=== PATIENT | male | born 1950 | race Asian ===

== ENCOUNTER 2020-11-19 18:08 | Inpatient (IN) | payer OTHER ==
[2020-11-19] MEDS ORDERED: SODIUM CHLORIDE 1,000 ML IV STA (19:30)
[2020-11-19] MEDS ORDERED: SODIUM CHLORIDE 500 ML IV STA (20:02)
[2020-11-19 20:33] LABS: BASO % 0.4 % (0-2.0); EOS % 1.3 % (0-4.5); HEMATOCRIT 47.9 % (35.4-49); HEMOGLOBIN 16.2 GM/dL (11.7-16.9); LYMPH % 9.2 % (8-40); MCH 30.9 pg (25.7-33.7); MCHC 33.9 g/dl (32.0-35.9); MEAN CELL VOLUME 91.1 fl (80-96); MEAN PLT VOLUME 10.7 fl (7.5-11.1); MONO % 7.1 % (3.8-10.2); PLATELET COUNT 163 K/MM3 (134-434); RBC 5.26 M/mm3 (4.00-5.60); RDW 14.4 % (11.9-15.9); WHITE BLOOD COUNT 20.4 K/mm3 (4.0-10.0)
[2020-11-19 20:53] LABS: CALCIUM 9.2 mg/dL (8.5-10.1)
[2020-11-19 20:54] LABS: ALBUMIN 4.1 g/dl (3.4-5.0); BLOOD UREA NITROGEN 50.5 mg/dL (7-18)
[2020-11-19 20:57] LABS: CREATININE 2.4 mg/dL (0.55-1.3); EPI CELLS 35 /uL (0-25.1); HYALINE CASTS 3 /uL (0-3.1); URINE APPEARANCE TURBID; URINE BACTERIA 3406 /uL (0-1359); URINE BILIRUBIN NEGATIVE (NEGATIVE); URINE COLOR YELLOW; URINE GLUCOSE (UA) 1+ (NEGATIVE); URINE KETONE TRACE (NEGATIVE); URINE LEUK ESTERASE 2+ (NEGATIVE); URINE NITRITE NEGATIVE (NEGATIVE); URINE PROTEIN 3+ (NEGATIVE); URINE RBC 4191 /uL (0-23.9); URINE UROBILINOGEN 0.2 mg/dL (0.2-1.0); URINE WBC 3852 /uL (0-25.8)
[2020-11-19 20:58] LABS: BILIRUBIN,TOTAL 1.9 mg/dL (0.2-1)
[2020-11-19 20:59] LABS: TOT PROT 7.8 g/dl (6.4-8.2)
[2020-11-19] MEDS ORDERED: CEFTRIAXONE 1,000 MG in DEXTROSE 5%-WATER - 50 ML IVPB ONE (21:11)
[2020-11-19] MEDS ORDERED: CEFTRIAXONE 1 GM/50 ML BAG ONE (21:57)
[2020-11-19 23:27] LABS: PLATELET ESTIMATE NORMAL
[2020-11-20 00:14] LABS: BASO % 0.2 % (0-2.0); EOS % 0.8 % (0-4.5); HEMATOCRIT 45.8 % (35.4-49); HEMOGLOBIN 15.4 GM/dL (11.7-16.9); LYMPH % 5.1 % (8-40); MCH 30.8 pg (25.7-33.7); MCHC 33.7 g/dl (32.0-35.9); MEAN CELL VOLUME 91.3 fl (80-96); MEAN PLT VOLUME 10.7 fl (7.5-11.1); MONO % 8.8 % (3.8-10.2); NEUT % 85.1 % (42.8-82.8); PLATELET COUNT 159 K/MM3 (134-434); RBC 5.01 M/mm3 (4.00-5.60); RDW 14.5 % (11.9-15.9); WHITE BLOOD COUNT 21.5 K/mm3 (4.0-10.0)
[2020-11-20] MEDS ORDERED: ACETAMINOPHEN 325 MG TABLET (FP) PO PRN (01:07)
[2020-11-20] MEDS: oxyCODONE HCL 5 MG TABLET PO ONE ×2 (01:39→04:29)
[2020-11-20 02:13] LABS: ANISOCYTOSIS 1+; MACROCYTOSIS 1+; PLATELET ESTIMATE DECREASED
[2020-11-20] MEDS: SODIUM CHLORIDE 1,000 ML IV SCH ×2 (04:29→16:23)
[2020-11-20 04:40] VITALS: BMI 29.0
[2020-11-20] MEDS ORDERED: HEPARIN NA (PORCINE) 5,000 UNITS/ML 1ML VIAL SQ SCH (06:00)
[2020-11-20] MEDS: INSULIN SLIDING SCALE (NOVOLOG) 1 VIAL SQ SCH ×4 (06:23→21:49)
[2020-11-20] MEDS: LEVOTHYROXINE NA 150 MCG TABLET PO SCH (06:24)
[2020-11-20] MEDS ORDERED: PT OWN MED DRAWER 7, Y5N ONE ×3 (08:32→11:04)
[2020-11-20] MEDS ORDERED: INSULIN (NOVOLOG) ASPART 100 UNITS/ML 10ML VIAL ONE (08:39)
[2020-11-20] MEDS: TAMSULOSIN HCL 0.4 MG CAP PO SCH (08:41)
[2020-11-20] MEDS: PHENAZOPYRIDINE HCL 100 MG TABLET (FP) PO SCH ×3 (08:41→17:51)
[2020-11-20 08:58] LABS: BASO % 0.3 % (0-2.0); EOS % 0.4 % (0-4.5); HEMATOCRIT 43.3 % (35.4-49); HEMOGLOBIN 14.9 GM/dL (11.7-16.9); LYMPH % 8.7 % (8-40); MCH 30.8 pg (25.7-33.7); MCHC 34.5 g/dl (32.0-35.9); MEAN CELL VOLUME 89.4 fl (80-96); MEAN PLT VOLUME 9.7 fl (7.5-11.1); MONO % 9.7 % (3.8-10.2); NEUT % 80.9 % (42.8-82.8); PLATELET COUNT 128 K/MM3 (134-434); RBC 4.84 M/mm3 (4.00-5.60); RDW 14.2 % (11.9-15.9); WHITE BLOOD COUNT 22.3 K/mm3 (4.0-10.0)
[2020-11-20] MEDS ORDERED: PHENAZOPYRIDINE HCL 100 MG TABLET (FP) PO SCH (09:00)
[2020-11-20] MEDS: CARVEDILOL 25 MG TABLET (FP) PO SCH ×2 (09:23→21:23)
[2020-11-20] MEDS: RIVAROXABAN 20 MG TABLET PO SCH (09:24)
[2020-11-20 09:25] LABS: ALBUMIN 3.6 g/dl (3.4-5.0); BLOOD UREA NITROGEN 44.6 mg/dL (7-18); CALCIUM 8.8 mg/dL (8.5-10.1)
[2020-11-20 09:26] LABS: MAGNESIUM 1.9 mg/dL (1.8-2.4)
[2020-11-20 09:28] LABS: CREATININE 2.2 mg/dL (0.55-1.3); PHOSPHOROUS 3.1 mg/dL (2.5-4.9)
[2020-11-20 09:30] LABS: BILIRUBIN,TOTAL 1.9 mg/dL (0.2-1); TOT PROT 7.3 g/dl (6.4-8.2)
[2020-11-20] MEDS ORDERED: LOSARTAN POTASSIUM 50 MG TABLET PO SCH (10:00)
[2020-11-20 10:46] LABS: PLATELET ESTIMATE DECREASED
[2020-11-20] MEDS: NICOTINE 7 MG/24 HOURS TOPICAL PATCH TD SCH (11:00)
[2020-11-20] MEDS ORDERED: cefTRIAXone SODIUM 1 GM VIAL ONE (20:27)
[2020-11-20] MEDS ORDERED: DEXTROSE 5%-WATER - 50 ML IVPB ONE (20:29)
[2020-11-20] MEDS: ROSUVASTATIN CA 20 MG TABLET (FP) PO SCH (21:23)
[2020-11-20] MEDS: CEFTRIAXONE 1 GM in DEXTROSE 5%-WATER - 50 ML IVPB SCH (21:24)
[2020-11-21] MEDS: SODIUM CHLORIDE 1,000 ML IV SCH (02:15)
[2020-11-21] MEDS: LEVOTHYROXINE NA 150 MCG TABLET PO SCH (06:07)
[2020-11-21] MEDS: INSULIN SLIDING SCALE (NOVOLOG) 1 VIAL SQ SCH ×3 (06:11→16:48)
[2020-11-21] MEDS: INSULIN (LEVEMIR) 100 UNITS/ML UNITS SQ SCH ×2 (06:12→21:14)
[2020-11-21 08:48] LABS: HEMATOCRIT 39.9 % (35.4-49); HEMOGLOBIN 13.8 GM/dL (11.7-16.9); MCH 30.6 pg (25.7-33.7); MCHC 34.5 g/dl (32.0-35.9); MEAN CELL VOLUME 88.8 fl (80-96); MEAN PLT VOLUME 9.7 fl (7.5-11.1); PLATELET COUNT 114 K/MM3 (134-434); RDW 14.5 % (11.9-15.9); WHITE BLOOD COUNT 16.9 K/mm3 (4.0-10.0)
[2020-11-21] MEDS ORDERED: PT OWN MED DRAWER 7, Y5N ONE (09:21)
[2020-11-21] MEDS ORDERED: cefTRIAXone SODIUM 1 GM VIAL ONE (09:21)
[2020-11-21] MEDS ORDERED: DEXTROSE 5%-WATER - 50 ML IVPB ONE (09:21)
[2020-11-21 09:22] LABS: CALCIUM 8.5 mg/dL (8.5-10.1)
[2020-11-21 09:23] LABS: BLOOD UREA NITROGEN 34.8 mg/dL (7-18)
[2020-11-21] MEDS: TAMSULOSIN HCL 0.4 MG CAP PO SCH (09:23)
[2020-11-21] MEDS: PHENAZOPYRIDINE HCL 100 MG TABLET (FP) PO SCH ×3 (09:23→18:06)
[2020-11-21] MEDS: CEFTRIAXONE 1 GM in DEXTROSE 5%-WATER - 50 ML IVPB SCH (09:24)
[2020-11-21] MEDS: CARVEDILOL 25 MG TABLET (FP) PO SCH ×2 (09:24→21:12)
[2020-11-21] MEDS: RIVAROXABAN 20 MG TABLET PO SCH (09:24)
[2020-11-21] MEDS: NICOTINE 7 MG/24 HOURS TOPICAL PATCH TD SCH ×2 (09:25→16:20)
[2020-11-21 09:26] LABS: BILIRUBIN,TOTAL 1.2 mg/dL (0.2-1); CREATININE 1.9 mg/dL (0.55-1.3); PHOSPHOROUS 2.3 mg/dL (2.5-4.9); TOT PROT 6.7 g/dl (6.4-8.2)
[2020-11-21] MEDS: ROSUVASTATIN CA 20 MG TABLET (FP) PO SCH (21:12)
[2020-11-22] MEDS: LEVOTHYROXINE NA 150 MCG TABLET PO SCH (06:00)
[2020-11-22] MEDS: INSULIN SLIDING SCALE (NOVOLOG) 1 VIAL SQ SCH ×3 (06:01→17:09)
[2020-11-22] MEDS: INSULIN (LEVEMIR) 100 UNITS/ML UNITS SQ SCH ×2 (06:01→22:01)
[2020-11-22 07:44] LABS: BASO % 0.5 % (0-2.0); EOS % 4.2 % (0-4.5); HEMATOCRIT 38.5 % (35.4-49); HEMOGLOBIN 13.4 GM/dL (11.7-16.9); LYMPH % 11.3 % (8-40); MCH 31.2 pg (25.7-33.7); MCHC 34.9 g/dl (32.0-35.9); MEAN CELL VOLUME 89.4 fl (80-96); MEAN PLT VOLUME 10.5 fl (7.5-11.1); MONO % 9.4 % (3.8-10.2); NEUT % 74.6 % (42.8-82.8); PLATELET COUNT 116 K/MM3 (134-434); RBC 4.31 M/mm3 (4.00-5.60); RDW 14.2 % (11.9-15.9)
[2020-11-22 08:14] LABS: ALBUMIN 2.8 g/dl (3.4-5.0); MAGNESIUM 1.9 mg/dL (1.8-2.4)
[2020-11-22 08:17] LABS: CALCIUM 8.4 mg/dL (8.5-10.1); CREATININE 1.8 mg/dL (0.55-1.3); PHOSPHOROUS 2.4 mg/dL (2.5-4.9)
[2020-11-22 08:19] LABS: TOT PROT 6.3 g/dl (6.4-8.2)
[2020-11-22] MEDS ORDERED: DEXTROSE 5%-WATER - 50 ML IVPB ONE (10:32)
[2020-11-22] MEDS ORDERED: cefTRIAXone SODIUM 1 GM VIAL ONE (10:32)
[2020-11-22] MEDS: NICOTINE 7 MG/24 HOURS TOPICAL PATCH TD SCH (11:03)
[2020-11-22] MEDS: TAMSULOSIN HCL 0.4 MG CAP PO SCH (11:03)
[2020-11-22] MEDS: PHENAZOPYRIDINE HCL 100 MG TABLET (FP) PO SCH ×3 (11:03→17:46)
[2020-11-22] MEDS: CEFTRIAXONE 1 GM in DEXTROSE 5%-WATER - 50 ML IVPB SCH (11:04)
[2020-11-22] MEDS: CARVEDILOL 25 MG TABLET (FP) PO SCH ×2 (11:04→22:00)
[2020-11-22] MEDS: RIVAROXABAN 20 MG TABLET PO SCH (11:04)
[2020-11-22] MEDS: ERTAPENEM SODIUM 1 GM in SODIUM CHLORIDE 50 ML IVPB SCH (13:09)
[2020-11-22] MEDS: amLODIPine BESYLATE 5 MG TABLET (FP) PO SCH (17:10)
[2020-11-22] MEDS: ROSUVASTATIN CA 20 MG TABLET (FP) PO SCH (22:00)
[2020-11-23] MEDS: LEVOTHYROXINE NA 150 MCG TABLET PO SCH (06:41)
[2020-11-23] MEDS: INSULIN SLIDING SCALE (NOVOLOG) 1 VIAL SQ SCH ×3 (06:41→16:28)
[2020-11-23] MEDS: INSULIN (LEVEMIR) 100 UNITS/ML UNITS SQ SCH (06:43)
[2020-11-23] MEDS ORDERED: INSULIN (NOVOLOG) ASPART 100 UNITS/ML 10ML VIAL ONE ×2 (07:53→18:32)
[2020-11-23 08:08] LABS: BASO % 0.8 % (0-2.0); EOS % 9.3 % (0-4.5); HEMATOCRIT 39.2 % (35.4-49); LYMPH % 19.7 % (8-40); MCH 31.3 pg (25.7-33.7); MCHC 35.6 g/dl (32.0-35.9); MEAN PLT VOLUME 9.6 fl (7.5-11.1); MONO % 16.5 % (3.8-10.2); NEUT % 53.7 % (42.8-82.8); PLATELET COUNT 126 K/MM3 (134-434); RBC 4.46 M/mm3 (4.00-5.60); RDW 13.8 % (11.9-15.9); WHITE BLOOD COUNT 6.6 K/mm3 (4.0-10.0)
[2020-11-23 08:23] LABS: ALBUMIN 2.8 g/dl (3.4-5.0); BLOOD UREA NITROGEN 35.4 mg/dL (7-18); CALCIUM 8.6 mg/dL (8.5-10.1)
[2020-11-23 08:26] LABS: CREATININE 1.8 mg/dL (0.55-1.3)
[2020-11-23 08:28] LABS: BILIRUBIN,TOTAL 0.7 mg/dL (0.2-1); TOT PROT 6.5 g/dl (6.4-8.2)
[2020-11-23] MEDS: PHENAZOPYRIDINE HCL 100 MG TABLET (FP) PO SCH ×2 (08:57→12:35)
[2020-11-23] MEDS: TAMSULOSIN HCL 0.4 MG CAP PO SCH (08:57)
[2020-11-23 10:00] LABS: ANISOCYTOSIS 0; MACROCYTOSIS 0; PLATELET ESTIMATE DECREASED
[2020-11-23] MEDS ORDERED: PT OWN MED DRAWER 7, Y5N ONE ×2 (10:23→12:30)
[2020-11-23] MEDS: CARVEDILOL 25 MG TABLET (FP) PO SCH (12:21)
[2020-11-23] MEDS: amLODIPine BESYLATE 5 MG TABLET (FP) PO SCH (12:22)
[2020-11-23] MEDS: ERTAPENEM SODIUM 1 GM in SODIUM CHLORIDE 50 ML IVPB SCH (12:22)
[2020-11-23] MEDS: RIVAROXABAN 20 MG TABLET PO SCH (12:22)
[2020-11-23] MEDS: NICOTINE 7 MG/24 HOURS TOPICAL PATCH TD SCH (12:24)
[2020-11-23] MEDS ORDERED: INSULIN (LEVEMIR) 100 UNITS/ML UNITS SQ ONE (13:53)
[2020-11-23 14:47] VITALS: BP 157/85; PULSE 73; TEMP 98.6
== END 2020-11-23 17:37 | disposition home health service (06) | DRG 872 ==
LOC: JER 18:08 → JERBED 23:37 → J8W 11-20 04:03
PROVIDERS: ADMIT Hospitalist; ATTEND Internal Medicine
PROC: 02HV33Z Insertion of Infusion Device into Superior Vena Cava, Percutaneous Approach (ICD-10-PCS; principal; 2020-11-23)
PROC: B548ZZA Ultrasonography of Superior Vena Cava, Guidance (ICD-10-PCS; 2020-11-23)
DX: A41.9 Sepsis, unspecified organism (principal); N17.9 Acute kidney failure, unspecified; E87.1 Hypo-osmolality and hyponatremia; N39.0 Urinary tract infection, site not specified; N12 Tubulo-interstitial nephritis, not specified as acute or chronic; E78.5 Hyperlipidemia, unspecified; I48.91 Unspecified atrial fibrillation; Z79.01 Long term (current) use of anticoagulants; E11.22 Type 2 diabetes mellitus with diabetic chronic kidney disease; I12.9 Hypertensive chronic kidney disease with stage 1 through stage 4 chronic kidney disease, or unspecified chronic kidney disease; E86.0 Dehydration; E03.9 Hypothyroidism, unspecified; N18.30 Chronic kidney disease, stage 3 unspecified; I25.10 Atherosclerotic heart disease of native coronary artery without angina pectoris; Z79.4 Long term (current) use of insulin; R94.31 Abnormal electrocardiogram [ECG] [EKG]; E27.9 Disorder of adrenal gland, unspecified
CPT/HCPCS: 36415; 36558; 74176-TC; 80053; 81003; 82570; 82962; 83036; 83735; 84100; 84300; 84436; 84443; 84540; 85025; 85027; 87040; 87086; 87186; 93005; 93010; 99285-25; C9803; U0003; U0005

== ENCOUNTER → 2020-12-11 | Day surgery (SDC) | payer OTHER | END | disposition home or self-care (01) | LOC: JRADIR 11:49 | PROVIDERS: ATTEND Internal Medicine Infectious Disease | PROC: 02PY03Z Removal of Infusion Device from Great Vessel, Open Approach (ICD-10-PCS; principal; 2020-12-11) | DX: Z45.2 Encounter for adjustment and management of vascular access device (principal) | CPT/HCPCS: 36589 ==

== ENCOUNTER 2023-08-21 14:12 | Emergency (ER) | payer OTHER ==
[2023-08-21 14:22] VITALS: BP 152/63; PULSE 72; RESP 18; TEMP 97.7; BMI 28.3
== END 2023-08-21 17:46 | disposition home or self-care (01) ==
LOC: JER 14:12
DX: M79.604 Pain in right leg (principal); M79.605 Pain in left leg; R22.43 Localized swelling, mass and lump, lower limb, bilateral; M54.16 Radiculopathy, lumbar region
CPT/HCPCS: 82962; 93970-TC; 99284-25

== ENCOUNTER 2024-03-04 17:44 | Inpatient (IN) | payer OTHER ==
[2024-03-04] MEDS: SODIUM CHLORIDE 0.9% 500 ML INFUS.BAG IV ONE (18:53)
[2024-03-04 18:56] LABS: BASO % 0.4 % (0-2.0); EOS % 1.7 % (0-4.5); HEMATOCRIT 47.6 % (35.4-49); HEMOGLOBIN 15.7 GM/dL (11.7-16.9); LYMPH % 15.8 % (8-40); MCH 30.1 pg (25.7-33.7); MCHC 32.9 g/dl (32.0-35.9); MEAN CELL VOLUME 91.5 fl (80-96); MEAN PLT VOLUME 8.7 fl (7.5-11.1); MONO % 8.6 % (3.8-10.2); NEUT % 73.5 % (42.8-82.8); PLATELET COUNT 133 10^3/uL (134-434); RBC 5.21 M/mm3 (4.00-5.60); RDW 14.6 % (11.9-15.9); WHITE BLOOD COUNT 11.1 K/mm3 (4.0-10.0)
[2024-03-04 19:36] LABS: POTASSIUM 4.6 mmol/L (3.5-5.1)
[2024-03-04 19:38] LABS: CALCIUM 9.3 mg/dL (8.5-10.1)
[2024-03-04 19:39] LABS: ALBUMIN 4.2 g/dl (3.4-5.0); BLOOD UREA NITROGEN 31.7 mg/dL (7-18)
[2024-03-04 19:42] LABS: CREATININE 2.4 mg/dL (0.55-1.3)
[2024-03-04 19:44] LABS: BILIRUBIN,TOTAL 1.4 mg/dL (0.2-1); TOT PROT 7.8 g/dl (6.4-8.2)
[2024-03-04 20:12] LABS: EPI CELLS 7 /uL (0-25.1); HYALINE CASTS 0 /uL (0-3.1); PH,URINE 5.5 (5.0-8.0); URINE APPEARANCE CLEAR; URINE BACTERIA 9 /uL (0-1359); URINE BILIRUBIN NEGATIVE (NEGATIVE); URINE COLOR YELLOW; URINE GLUCOSE (UA) 3+ (NEGATIVE); URINE KETONE NEGATIVE (NEGATIVE); URINE LEUK ESTERASE NEGATIVE (NEGATIVE); URINE NITRITE NEGATIVE (NEGATIVE); URINE PROTEIN 3+ (NEGATIVE); URINE RBC 28 /uL (0-23.9); URINE UROBILINOGEN 0.2 mg/dL (0.2-1.0); URINE WBC 5 /uL (0-25.8)
[2024-03-04] MEDS ORDERED: ACETAMINOPHEN INJECTION 100 ML IVPB ONE (21:27)
[2024-03-04] MEDS: ACETAMINOPHEN 1000 MG/100 ML BAG IVPB ONE (21:32)
[2024-03-05] MEDS: SODIUM CHLORIDE 1,000 ML IV SCH ×2 (03:02→08:14)
[2024-03-05 03:43] LABS: HEMATOCRIT 45.5 % (35.4-49); HEMOGLOBIN 15.1 GM/dL (11.7-16.9); MCH 30.2 pg (25.7-33.7); MCHC 33.3 g/dl (32.0-35.9); MEAN CELL VOLUME 90.8 fl (80-96); MEAN PLT VOLUME 9.4 fl (7.5-11.1); PLATELET COUNT 122 10^3/uL (134-434); RBC 5.01 M/mm3 (4.00-5.60); RDW 14.6 % (11.9-15.9); WHITE BLOOD COUNT 12.9 K/mm3 (4.0-10.0)
[2024-03-05] MEDS ORDERED: ACETAMINOPHEN INJECTION 100 ML IVPB ONE ×2 (04:47→19:56)
[2024-03-05] MEDS: ACETAMINOPHEN 1000 MG/100 ML BAG IVPB ONE ×2 (04:50→20:16)
[2024-03-05 06:07] LABS: ERYTHROCYTE SEDIMENTATION RATE 10 mm/hr (0-20)
[2024-03-05 06:46] LABS: HEMOGLOBIN 13.8 GM/dL (11.7-16.9); MCH 30.5 pg (25.7-33.7); MCHC 33.7 g/dl (32.0-35.9); MEAN CELL VOLUME 90.5 fl (80-96); MEAN PLT VOLUME 9.2 fl (7.5-11.1); PLATELET COUNT 110 10^3/uL (134-434); RBC 4.53 M/mm3 (4.00-5.60); RDW 14.7 % (11.9-15.9); WHITE BLOOD COUNT 10.9 K/mm3 (4.0-10.0)
[2024-03-05 07:04] LABS: CHLORIDE 107 mmol/L (98-107); POTASSIUM 4.2 mmol/L (3.5-5.1); SODIUM 139 mmol/L (136-145)
[2024-03-05 07:06] LABS: ALBUMIN 3.7 g/dl (3.4-5.0); ANION GAP 9 mmol/L (4-13); CALCIUM 8.1 mg/dL (8.5-10.1); CO2 22 mmol/L (21-32); GLUCOSE,RANDOM 70 mg/dL (74-106); MAGNESIUM 1.6 mg/dL (1.8-2.4)
[2024-03-05 07:08] LABS: BLOOD UREA NITROGEN 32.4 mg/dL (7-18)
[2024-03-05 07:10] LABS: CREATININE 2.2 mg/dL (0.55-1.3); PHOSPHOROUS 3.3 mg/dL (2.5-4.9); SGOT/AST 13 U/L (15-37); SGPT/ALT 26 U/L (13-61)
[2024-03-05 07:12] LABS: BILIRUBIN,TOTAL 1.7 mg/dL (0.2-1); TOT PROT 6.6 g/dl (6.4-8.2)
[2024-03-05 07:13] LABS: ALK PHOS 51 U/L (45-117)
[2024-03-05] MEDS: INSULIN ASPART SLIDING SCALE (NOVOLOG) 1 VIAL SQ SCH (07:28)
[2024-03-05] MEDS: INSULIN (LEVEMIR) 100 UNITS/ML UNITS SQ SCH (07:29)
[2024-03-05] MEDS ORDERED: ACETAMINOPHEN 325 MG TABLET (FP) ONE (10:27)
[2024-03-05] MEDS ORDERED: LOSARTAN POTASSIUM 50 MG TABLET ONE (10:27)
[2024-03-05] MEDS: CHLORTHALIDONE 25 MG TABLET PO SCH (10:30)
[2024-03-05] MEDS: EZETIMIBE 10 MG TABLET (FP) PO SCH (10:30)
[2024-03-05] MEDS: OMEGA-3 ACID ETHYL ESTERS (FATTY-ACIDS) 1 GM CAPSULE (FP) PO SCH (10:30)
[2024-03-05] MEDS: LOSARTAN POTASSIUM 50 MG TABLET PO SCH (10:30)
[2024-03-05] MEDS: FENOFIBRIC ACID 135 MG CAP PO SCH (10:39)
[2024-03-05] MEDS ORDERED: GABAPENTIN 300 MG CAPSULE ONE ×2 (10:45→22:23)
[2024-03-05] MEDS ORDERED: LEVOTHYROXINE NA 50 MCG TABLET (FP) ONE (10:46)
[2024-03-05] MEDS ORDERED: LEVOTHYROXINE NA 100 MCG TABLET (FP) ONE (10:46)
[2024-03-05] MEDS: GABAPENTIN 300 MG CAPSULE PO SCH (10:52)
[2024-03-05] MEDS: LEVOTHYROXINE NA 75 MCG TABLET (FP) PO SCH (10:52)
[2024-03-05] MEDS: ACETAMINOPHEN 500 MG TABLET (FP) PO ONE (10:53)
[2024-03-05] MEDS ORDERED: ACETAMINOPHEN 160 MG/5 ML 473ML BULK BOTTLE ONE (15:22)
[2024-03-05] MEDS: ACETAMINOPHEN 1000 MG/100 ML BAG IVPB SCH (15:29)
[2024-03-05] MEDS: RIVAROXABAN 15 MG TABLET PO SCH (18:32)
[2024-03-05] MEDS ORDERED: ROSUVASTATIN CA 20 MG TABLET PO SCH (22:00)
[2024-03-06] MEDS ORDERED: ACETAMINOPHEN INJECTION 100 ML IVPB ONE ×3 (02:17→18:12)
[2024-03-06] MEDS ORDERED: LIDOCAINE 5% TOPICAL PATCH ONE (08:49)
[2024-03-06] MEDS ORDERED: HEPARIN NA (PORCINE) 5,000 UNITS/ML 1ML VIAL ONE (08:49)
[2024-03-06] MEDS ORDERED: INSULIN (LEVEMIR) 100 UNITS/ML UNITS SQ SCH (10:00)
[2024-03-06 10:49] LABS: BASO % 0.3 % (0-2.0); EOS % 0.6 % (0-4.5); HEMOGLOBIN 14.6 GM/dL (11.7-16.9); LYMPH % 15.5 % (8-40); MCHC 34.8 g/dl (32.0-35.9); MEAN PLT VOLUME 8.7 fl (7.5-11.1); MONO % 9.4 % (3.8-10.2); NEUT % 74.2 % (42.8-82.8); PLATELET COUNT 116 10^3/uL (134-434); RBC 4.72 M/mm3 (4.00-5.60); RDW 14.3 % (11.9-15.9); WHITE BLOOD COUNT 12.1 K/mm3 (4.0-10.0)
[2024-03-06 11:07] LABS: POTASSIUM 4.3 mmol/L (3.5-5.1)
[2024-03-06 11:11] LABS: ALBUMIN 3.8 g/dl (3.4-5.0); BLOOD UREA NITROGEN 38.2 mg/dL (7-18); CALCIUM 8.9 mg/dL (8.5-10.1)
[2024-03-06 11:14] LABS: BILIRUBIN,TOTAL 1.8 mg/dL (0.2-1); CREATININE 2.3 mg/dL (0.55-1.3); TOT PROT 7.1 g/dl (6.4-8.2)
[2024-03-06] MEDS: ACETAMINOPHEN 1000 MG/100 ML BAG IVPB SCH (11:56)
[2024-03-06] MEDS: ACETAMINOPHEN 1000 MG/100 ML BAG IVPB PRN (18:11)
[2024-03-06] MEDS ORDERED: GABAPENTIN 300 MG CAPSULE ONE (21:51)
[2024-03-07] MEDS ORDERED: ACETAMINOPHEN INJECTION 100 ML IVPB ONE (04:31)
[2024-03-07 07:12] LABS: BASO % 0.4 % (0-2.0); EOS % 0.7 % (0-4.5); HEMATOCRIT 39.8 % (35.4-49); HEMOGLOBIN 13.5 GM/dL (11.7-16.9); LYMPH % 15.4 % (8-40); MCH 30.5 pg (25.7-33.7); MCHC 33.9 g/dl (32.0-35.9); MEAN PLT VOLUME 9.2 fl (7.5-11.1); MONO % 9.3 % (3.8-10.2); NEUT % 74.2 % (42.8-82.8); PLATELET COUNT 118 10^3/uL (134-434); RBC 4.42 M/mm3 (4.00-5.60); RDW 14.2 % (11.9-15.9); WHITE BLOOD COUNT 10.8 K/mm3 (4.0-10.0)
[2024-03-07 07:28] LABS: POTASSIUM 4.1 mmol/L (3.5-5.1)
[2024-03-07 07:32] LABS: CALCIUM 8.5 mg/dL (8.5-10.1)
[2024-03-07 07:33] LABS: ALBUMIN 3.6 g/dl (3.4-5.0)
[2024-03-07 07:36] LABS: CREATININE 2.4 mg/dL (0.55-1.3)
[2024-03-07 07:37] LABS: TOT PROT 6.7 g/dl (6.4-8.2)
[2024-03-07 07:38] LABS: BILIRUBIN,TOTAL 1.4 mg/dL (0.2-1)
[2024-03-07 14:52] VITALS: BMI 28.1
[2024-03-07] MEDS: CEFTRIAXONE 2 GM in DEXTROSE 5%-WATER 100 ML IVPB SCH (15:27)
[2024-03-07] MEDS: ACYCLOVIR INJECTION 900 MG in DEXTROSE 5%-WATER - 250 ML IVPB SCH (16:05)
[2024-03-07] MEDS ORDERED: INSULIN ASPART SLIDING SCALE (NOVOLOG) 1 VIAL SQ ONE (17:08)
[2024-03-07] MEDS: VANCOMYCIN/WATER 1250 MG 1,250 MG/250 ML BAG IVPB ONE (17:21)
[2024-03-07] MEDS ORDERED: ACETAMINOPHEN 325 MG TABLET (FP) PO PRN (18:00)
[2024-03-07] MEDS: HEPARIN NA (PORCINE) 5,000 UNITS/ML 1ML VIAL SQ SCH (21:37)
[2024-03-08] MEDS: LORazepam 2 MG/ML SDV VIAL IVPUSH PRN (07:20)
[2024-03-08 08:43] LABS: INR 1.04 (0.83-1.09)
[2024-03-08 08:45] LABS: ACTIVATED PTT 30.7 SECONDS (25.2-36.5)
[2024-03-08 09:25] LABS: BASO % 0.4 % (0-2.0); HEMATOCRIT 38.3 % (35.4-49); HEMOGLOBIN 13.3 GM/dL (11.7-16.9); LYMPH % 18.9 % (8-40); MCH 31.1 pg (25.7-33.7); MCHC 34.7 g/dl (32.0-35.9); MEAN CELL VOLUME 89.5 fl (80-96); MEAN PLT VOLUME 9.9 fl (7.5-11.1); MONO % 11.9 % (3.8-10.2); NEUT % 66.8 % (42.8-82.8); PLATELET COUNT 127 10^3/uL (134-434); RBC 4.29 M/mm3 (4.00-5.60); RDW 14.4 % (11.9-15.9); WHITE BLOOD COUNT 9.1 K/mm3 (4.0-10.0)
[2024-03-08 09:58] LABS: CALCIUM 8.7 mg/dL (8.5-10.1)
[2024-03-08 09:59] LABS: ALBUMIN 3.6 g/dl (3.4-5.0); BLOOD UREA NITROGEN 48.4 mg/dL (7-18)
[2024-03-08 10:01] LABS: CREATININE 2.3 mg/dL (0.55-1.3)
[2024-03-08 10:03] LABS: BILIRUBIN,TOTAL 1.1 mg/dL (0.2-1)
[2024-03-08 10:08] LABS: TOT PROT 6.8 g/dl (6.4-8.2)
[2024-03-08] MEDS ORDERED: INSULIN ASPART SLIDING SCALE (NOVOLOG) 1 VIAL SQ ONE (11:34)
[2024-03-08] MEDS: LACTATED RINGERS SOLUTION 1,000 ML/1,000 ML INFUS.BAG IV SCH (11:54)
[2024-03-08] MEDS ORDERED: SODIUM CHLORIDE 1,000 ML IV SCH (12:24)
[2024-03-08] MEDS: SODIUM CHLORIDE 1,000 ML IV SCH (12:44)
[2024-03-08] MEDS: SODIUM CHLORIDE 500 ML IV STA (12:47)
[2024-03-08] MEDS ORDERED: LACTATED RINGERS SOLUTION 1,000 ML/1,000 ML INFUS.BAG IV SCH (15:30)
[2024-03-08] MEDS: VANCOMYCIN/WATER 1250 MG 1,250 MG/250 ML BAG IVPB SCH (16:30)
[2024-03-09] MEDS ORDERED: INSULIN (LEVEMIR) 100 UNITS/ML UNITS SQ ONE (08:08)
[2024-03-09 09:55] LABS: HEMATOCRIT 39.9 % (35.4-49); HEMOGLOBIN 13.6 GM/dL (11.7-16.9); MCH 30.5 pg (25.7-33.7); MEAN CELL VOLUME 89.5 fl (80-96); MEAN PLT VOLUME 8.8 fl (7.5-11.1); PLATELET COUNT 143 10^3/uL (134-434); RBC 4.46 M/mm3 (4.00-5.60); RDW 14.4 % (11.9-15.9); WHITE BLOOD COUNT 8.3 K/mm3 (4.0-10.0)
[2024-03-09 09:59] LABS: INR 1.02 (0.83-1.09); PROTHROMBIN TIME (PATIENT) 11.5 SEC (9.7-13.0)
[2024-03-09 10:15] LABS: BLOOD UREA NITROGEN 34.2 mg/dL (7-18); CALCIUM 8.9 mg/dL (8.5-10.1); MAGNESIUM 1.9 mg/dL (1.8-2.4)
[2024-03-09] MEDS: MULTIVITAMINS (DAILY MVI) TABLET (FP) PO SCH (10:17)
[2024-03-09 10:18] LABS: CREATININE 1.8 mg/dL (0.55-1.3); PHOSPHOROUS 3.6 mg/dL (2.5-4.9)
[2024-03-09 10:26] LABS: BILIRUBIN,TOTAL 0.9 mg/dL (0.2-1); TOT PROT 6.8 g/dl (6.4-8.2)
[2024-03-09 10:29] LABS: BILIRUBIN,DIRECT 0.2 mg/dL (0.0-0.2)
[2024-03-09 10:30] LABS: ALBUMIN 3.5 g/dl (3.4-5.0)
[2024-03-09 12:35] LABS: ARTERIAL BLD GAS O2 SATURATION 89.7 % (95-98); ARTERIAL BLOOD GAS BASE EXCESS -5.2 mmol/L (-2-2); ARTERIAL BLOOD GAS PO2 58.9 mmHg (80-100); ARTERIAL BLOOD GAS pH 7.356 (7.350-7.450)
[2024-03-09 12:37] LABS: ALLENS TEST POSITIVE
[2024-03-09] MEDS: LACTATED RINGERS SOLUTION 1,000 ML/1,000 ML INFUS.BAG IV SCH (13:19)
[2024-03-09] MEDS ORDERED: HEPARIN NA (PORCINE) 5,000 UNITS/ML 1ML VIAL SQ SCH (22:00)
[2024-03-10 10:34] LABS: POTASSIUM 3.8 mmol/L (3.5-5.1)
[2024-03-10 10:40] LABS: CALCIUM 9.2 mg/dL (8.5-10.1)
[2024-03-10 10:41] LABS: ALBUMIN 3.3 g/dl (3.4-5.0); BLOOD UREA NITROGEN 25.2 mg/dL (7-18)
[2024-03-10 10:44] LABS: CREATININE 1.8 mg/dL (0.55-1.3)
[2024-03-10 10:45] LABS: BILIRUBIN,TOTAL 0.8 mg/dL (0.2-1); TOT PROT 6.6 g/dl (6.4-8.2)
[2024-03-11 10:30] LABS: BASO % 0.4 % (0-2.0); EOS % 6.5 % (0-4.5); HEMATOCRIT 40.8 % (35.4-49); MCH 30.3 pg (25.7-33.7); MCHC 34.3 g/dl (32.0-35.9); MEAN CELL VOLUME 88.5 fl (80-96); MEAN PLT VOLUME 9.2 fl (7.5-11.1); MONO % 8.9 % (3.8-10.2); NEUT % 67.2 % (42.8-82.8); PLATELET COUNT 169 10^3/uL (134-434); RBC 4.61 M/mm3 (4.00-5.60); RDW 14.1 % (11.9-15.9); WHITE BLOOD COUNT 8.9 K/mm3 (4.0-10.0)
[2024-03-11 10:34] LABS: INR 1.05 (0.83-1.09); PROTHROMBIN TIME (PATIENT) 11.9 SEC (9.7-13.0)
[2024-03-11 10:48] LABS: POTASSIUM 3.9 mmol/L (3.5-5.1)
[2024-03-11 10:56] LABS: CALCIUM 9.1 mg/dL (8.5-10.1)
[2024-03-11 10:57] LABS: ALBUMIN 3.1 g/dl (3.4-5.0); BLOOD UREA NITROGEN 24.4 mg/dL (7-18); MAGNESIUM 1.7 mg/dL (1.8-2.4)
[2024-03-11 11:00] LABS: BILIRUBIN,TOTAL 0.7 mg/dL (0.2-1); CREATININE 1.7 mg/dL (0.55-1.3); TOT PROT 6.4 g/dl (6.4-8.2)
[2024-03-11] MEDS: MAGNESIUM OXIDE 400 MG TABLET (FP) PO ONE (12:51)
[2024-03-11 14:22] LABS: CSF APPEARANCE CLEAR (CLEAR); CSF COLOR COLORLESS (COLORLESS)
[2024-03-11 14:28] LABS: BF GLUCOSE (CSF ONLY) 104 mg/dL (40-70)
[2024-03-11 14:48] LABS: CSF WBC 57 mm3 (0-5)
[2024-03-12 09:37] LABS: BASO % 0.5 % (0-2.0); EOS % 7.2 % (0-4.5); HEMATOCRIT 39.9 % (35.4-49); HEMOGLOBIN 13.7 GM/dL (11.7-16.9); LYMPH % 15.6 % (8-40); MCH 30.6 pg (25.7-33.7); MCHC 34.3 g/dl (32.0-35.9); MEAN CELL VOLUME 89.2 fl (80-96); MEAN PLT VOLUME 9.1 fl (7.5-11.1); MONO % 9.5 % (3.8-10.2); NEUT % 67.2 % (42.8-82.8); PLATELET COUNT 179 10^3/uL (134-434); RBC 4.47 M/mm3 (4.00-5.60); RDW 14.2 % (11.9-15.9); WHITE BLOOD COUNT 9.2 K/mm3 (4.0-10.0)
[2024-03-12 11:20] LABS: BILIRUBIN,TOTAL 0.7 mg/dL (0.2-1); CALCIUM 9.1 mg/dL (8.5-10.1); CREATININE 1.8 mg/dL (0.55-1.3); MAGNESIUM 1.8 mg/dL (1.8-2.4); POTASSIUM 3.7 mmol/L (3.5-5.1); TOT PROT 6.4 g/dl (6.4-8.2)
[2024-03-12] MEDS: HEPARIN NA (PORCINE) 5,000 UNITS/ML 1ML VIAL SQ SCH (21:32)
[2024-03-13 08:09] LABS: POTASSIUM 3.7 mmol/L (3.5-5.1)
[2024-03-13 08:12] LABS: BASO % 0.6 % (0-2.0); EOS % 6.8 % (0-4.5); HEMATOCRIT 38.6 % (35.4-49); HEMOGLOBIN 13.1 GM/dL (11.7-16.9); LYMPH % 19.5 % (8-40); MCH 30.4 pg (25.7-33.7); MCHC 33.9 g/dl (32.0-35.9); MEAN CELL VOLUME 89.5 fl (80-96); MEAN PLT VOLUME 8.6 fl (7.5-11.1); MONO % 9.4 % (3.8-10.2); NEUT % 63.7 % (42.8-82.8); PLATELET COUNT 170 10^3/uL (134-434); RBC 4.32 M/mm3 (4.00-5.60); RDW 13.9 % (11.9-15.9); WHITE BLOOD COUNT 7.8 K/mm3 (4.0-10.0)
[2024-03-13 08:13] LABS: CALCIUM 8.9 mg/dL (8.5-10.1)
[2024-03-13 08:14] LABS: ALBUMIN 2.8 g/dl (3.4-5.0); BLOOD UREA NITROGEN 23.9 mg/dL (7-18); MAGNESIUM 1.5 mg/dL (1.8-2.4)
[2024-03-13 08:17] LABS: CREATININE 1.7 mg/dL (0.55-1.3)
[2024-03-13 08:19] LABS: BILIRUBIN,TOTAL 0.6 mg/dL (0.2-1); TOT PROT 6.1 g/dl (6.4-8.2)
[2024-03-13] MEDS: MAGNESIUM OXIDE 400 MG TABLET (FP) PO ONE (12:05)
[2024-03-13] MEDS: LACTATED RINGERS SOLUTION 1,000 ML/1,000 ML INFUS.BAG IV SCH (18:25)
[2024-03-14 11:07] LABS: BASO % 0.8 % (0-2.0); EOS % 7.8 % (0-4.5); HEMATOCRIT 40.3 % (35.4-49); HEMOGLOBIN 13.7 GM/dL (11.7-16.9); LYMPH % 23.3 % (8-40); MCH 30.3 pg (25.7-33.7); MCHC 33.9 g/dl (32.0-35.9); MEAN CELL VOLUME 89.4 fl (80-96); MEAN PLT VOLUME 9.2 fl (7.5-11.1); MONO % 9.7 % (3.8-10.2); NEUT % 58.4 % (42.8-82.8); PLATELET COUNT 208 10^3/uL (134-434); RBC 4.51 M/mm3 (4.00-5.60); RDW 13.7 % (11.9-15.9); WHITE BLOOD COUNT 6.7 K/mm3 (4.0-10.0)
[2024-03-14 11:27] LABS: POTASSIUM 3.8 mmol/L (3.5-5.1)
[2024-03-14 11:37] LABS: ALBUMIN 3.1 g/dl (3.4-5.0); CALCIUM 9.5 mg/dL (8.5-10.1); MAGNESIUM 1.6 mg/dL (1.8-2.4)
[2024-03-14 11:41] LABS: CREATININE 1.7 mg/dL (0.55-1.3)
[2024-03-14 11:42] LABS: BILIRUBIN,TOTAL 0.7 mg/dL (0.2-1); TOT PROT 6.9 g/dl (6.4-8.2)
[2024-03-14] MEDS: ACETAMINOPHEN 325 MG TABLET (FP) PO PRN (12:14)
[2024-03-15] MEDS: LEVOTHYROXINE NA 75 MCG TABLET (FP) PO SCH (06:20)
[2024-03-15 08:48] LABS: BASO % 0.8 % (0-2.0); EOS % 9.4 % (0-4.5); HEMATOCRIT 42.3 % (35.4-49); HEMOGLOBIN 14.8 GM/dL (11.7-16.9); LYMPH % 25.1 % (8-40); MEAN CELL VOLUME 88.6 fl (80-96); MEAN PLT VOLUME 8.7 fl (7.5-11.1); MONO % 8.7 % (3.8-10.2); PLATELET COUNT 194 10^3/uL (134-434); RBC 4.77 M/mm3 (4.00-5.60); RDW 13.9 % (11.9-15.9); WHITE BLOOD COUNT 5.9 K/mm3 (4.0-10.0)
[2024-03-15 09:07] LABS: POTASSIUM 3.8 mmol/L (3.5-5.1)
[2024-03-15 09:09] LABS: CALCIUM 9.7 mg/dL (8.5-10.1)
[2024-03-15 09:10] LABS: ALBUMIN 3.2 g/dl (3.4-5.0); MAGNESIUM 1.6 mg/dL (1.8-2.4)
[2024-03-15 09:13] LABS: CREATININE 1.7 mg/dL (0.55-1.3)
[2024-03-15 09:14] LABS: BILIRUBIN,TOTAL 0.7 mg/dL (0.2-1)
[2024-03-15 09:15] LABS: TOT PROT 6.9 g/dl (6.4-8.2)
[2024-03-15 15:09] LABS: ALBUMIN SERUM 3.8 g/dL (3.8-4.8); CSF IGG INDEX 0.8 (0.0-0.7); IGG QN CSF 6.9 mg/dL (0.0-10.3); IGG/ALB RATIO CSF 0.22 (0.00-0.25)
[2024-03-15] MEDS: RIVAROXABAN 15 MG TABLET PO SCH (17:49)
[2024-03-15] MEDS: LOSARTAN POTASSIUM 50 MG TABLET PO ONE (17:49)
[2024-03-15] MEDS: LOSARTAN POTASSIUM 50 MG TABLET PO SCH (19:15)
[2024-03-15] MEDS: CHLORTHALIDONE 25 MG TABLET PO SCH ×2 (21:05→22:14)
[2024-03-16] MEDS: LABETALOL HCL 5 MG/1 ML (100MG/20 ML VIAL) IVPUSH ONE (03:15)
[2024-03-16 08:45] LABS: BASO % 0.7 % (0-2.0); EOS % 7.3 % (0-4.5); HEMOGLOBIN 14.5 GM/dL (11.7-16.9); LYMPH % 28.2 % (8-40); MCH 30.5 pg (25.7-33.7); MCHC 34.5 g/dl (32.0-35.9); MEAN CELL VOLUME 88.4 fl (80-96); MEAN PLT VOLUME 8.2 fl (7.5-11.1); MONO % 8.3 % (3.8-10.2); NEUT % 55.5 % (42.8-82.8); PLATELET COUNT 210 10^3/uL (134-434); RBC 4.75 M/mm3 (4.00-5.60); RDW 13.6 % (11.9-15.9); WHITE BLOOD COUNT 6.9 K/mm3 (4.0-10.0)
[2024-03-16 09:11] LABS: POTASSIUM 3.8 mmol/L (3.5-5.1)
[2024-03-16 09:27] VITALS: RESP 18
[2024-03-16 09:28] LABS: ALBUMIN 3.2 g/dl (3.4-5.0); BLOOD UREA NITROGEN 22.6 mg/dL (7-18); CALCIUM 9.8 mg/dL (8.5-10.1); MAGNESIUM 1.5 mg/dL (1.8-2.4)
[2024-03-16] MEDS: LOSARTAN POTASSIUM 50 MG TABLET PO SCH (09:28)
[2024-03-16 09:32] LABS: CREATININE 1.8 mg/dL (0.55-1.3)
[2024-03-16 09:33] LABS: BILIRUBIN,TOTAL 0.7 mg/dL (0.2-1); TOT PROT 6.8 g/dl (6.4-8.2)
[2024-03-16] MEDS: amLODIPine BESYLATE 5 MG TABLET (FP) PO ONE (10:34)
[2024-03-17 10:55] LABS: BASO % 0.8 % (0-2.0); EOS % 6.5 % (0-4.5); HEMATOCRIT 45.2 % (35.4-49); HEMOGLOBIN 15.5 GM/dL (11.7-16.9); LYMPH % 25.6 % (8-40); MCHC 34.4 g/dl (32.0-35.9); MEAN CELL VOLUME 90.2 fl (80-96); MEAN PLT VOLUME 8.2 fl (7.5-11.1); MONO % 7.9 % (3.8-10.2); NEUT % 59.2 % (42.8-82.8); PLATELET COUNT 200 10^3/uL (134-434); RDW 13.6 % (11.9-15.9); WHITE BLOOD COUNT 8.5 K/mm3 (4.0-10.0)
[2024-03-17 11:17] LABS: ALBUMIN 3.5 g/dl (3.4-5.0); BLOOD UREA NITROGEN 31.1 mg/dL (7-18); CALCIUM 9.9 mg/dL (8.5-10.1); MAGNESIUM 1.8 mg/dL (1.8-2.4)
[2024-03-17 11:21] LABS: BILIRUBIN,TOTAL 0.8 mg/dL (0.2-1); TOT PROT 7.4 g/dl (6.4-8.2)
[2024-03-17] MEDS: SODIUM CHLORIDE 0.45% 1,000 ML IV SCH (14:08)
[2024-03-17] MEDS ORDERED: INSULIN ASPART SLIDING SCALE (NOVOLOG) 1 VIAL SQ ONE (19:50)
[2024-03-18 10:29] VITALS: BP 155/73; PULSE 68; TEMP 97.7
[2024-03-21 10:07] LABS: MUMPS AB IGG CSF < 5.0 AU/mL (<=10.9)
== END 2024-03-18 11:07 | DRG 871 ==
LOC: JER 17:44 → JERBED 22:42 → OBSVTOIN 03-07 11:57 → J8W 03-07 13:05
PROVIDERS: ADMIT Internal Medicine; ATTEND Internal Medicine
PROC: 009U3ZZ Drainage of Spinal Canal, Percutaneous Approach (ICD-10-PCS; principal; 2024-03-11)
DX: A41.89 Other specified sepsis (principal); G93.41 Metabolic encephalopathy; A87.9 Viral meningitis, unspecified; E80.6 Other disorders of bilirubin metabolism; R41.82 Altered mental status, unspecified; E78.00 Pure hypercholesterolemia, unspecified; I12.9 Hypertensive chronic kidney disease with stage 1 through stage 4 chronic kidney disease, or unspecified chronic kidney disease; E11.22 Type 2 diabetes mellitus with diabetic chronic kidney disease; N18.9 Chronic kidney disease, unspecified; R45.1 Restlessness and agitation; J06.9 Acute upper respiratory infection, unspecified; E11.51 Type 2 diabetes mellitus with diabetic peripheral angiopathy without gangrene; D69.6 Thrombocytopenia, unspecified; I48.91 Unspecified atrial fibrillation; Z86.73 Personal history of transient ischemic attack (TIA), and cerebral infarction without residual deficits
CPT/HCPCS: 0241U-QW; 36415; 36600; 62272; 70450-TC; 71045-TC-FY; 76705-TC; 80048; 80053; 80076; 81003; 82308; 82607; 82746; 82784; 82787; 82803; 82945; 82962; 83036; 83735; 84100; 84157; 84443; 85025; 85027; 85610; 85651; 85730; 86140; 86644; 86694; 86704; 86705; 86708; 86709; 86735; 86765; 86780; 86787; 86788; 86789; 86803; 87040; 87070; 87086; 87102; 87205; 87210; 87340; 87517; 87633; 87635; 93005; 93010; 97116-GP; 97161-GP; 99285-25; G0378; G0480; J0131; J1644